=== PATIENT | female | born 1965 | race African-American/Black ===

== ENCOUNTER 2020-12-26 12:22 | Emergency (ER) | payer MEDICAID, OTHER ==
[~2020-12-26] VITALS: Ht 162.6 cm; Wt 68.4 kg
[~2020-12-26 12:22] MED LIST: ASPI325T20 PO; IBUP-1223 PO; OXYC1TAB14 PO; [UNRECOGNIZED DRUG - REMARK]
--- NOTE | 2020-12-26 12:55 | NUR ---
Pt arrived with back and hip pain x3 days, pt has hx of chronic back pain. Pt descibes pain as a stabbing sharp pain in hip and it is worse with movement. Placed on continious BP and O2 monitors, side rails up, positioned for comfort, VSS. NADN.
[2020-12-26] MEDS ORDERED: KETOROLAC 30 MG/1 ML ONE (13:08)
[2020-12-26] MEDS ORDERED: DIAZEPAM 5 MG TABLET ONE (13:08)
--- NOTE | 2020-12-26 13:14 | NUR ---
pt medicated per NOV, no other requests at this time
--- NOTE | 2020-12-26 13:23 | NUR ---
Pt to XRAY
[2020-12-26] MEDS ORDERED: KETOROLAC 30 MG/1 ML IM ONE (14:00)
[2020-12-26] MEDS ORDERED: DIAZEPAM 5 MG TABLET PO ONE (14:00)
[2020-12-26 14:14] VITALS: BP 134/67
--- NOTE | 2020-12-26 14:14 | NUR ---
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
== END 2020-12-26 15:09 | disposition home or self-care (01) ==
LOC: ED 14:48
DX: S39.012A Strain of muscle, fascia and tendon of lower back, initial encounter (principal); M41.9 Scoliosis, unspecified; X58.XXXA Exposure to other specified factors, initial encounter; Y93.89 Activity, other specified; Y92.89 Other specified places as the place of occurrence of the external cause; Y99.8 Other external cause status; M25.551 Pain in right hip
CPT/HCPCS: 72110; 73502; 96372; 99283; J1885